=== PATIENT | female | born 1950 | race Two or more races ===

== ENCOUNTER 2024-09-02 10:08 | Outpatient (AMB) | payer MEDICARE, MEDICAID, SELFPAY ==
[2024-09-02 11:00] VITALS: BP 153/74; PULSE 72; RESP 18; TEMP 36.5; O2SAT 94; BMI 35.9
--- NOTE | 2024-09-02 11:00 | PD.ORTHCLVIS ---
Vital signs 09/02/24 11:00 Height 1.45 m Height Method Stated Weight 75.41 kg Weight Measurement Method Standing Scale BMI 35.9 BP 153/74 H Blood Pressure Source Automatic Cuff Blood Pressure Location Right Upper Arm Position Sitting Respiration 18 Pulse 72 Pulse Source Monitor Temp 97.7 F Temp Source Temporal Artery Scan Pulse Oximetry (%) 94 L Oxygen Delivery Method Room Air Med/Allergies Allergies & Medications Allergies topiramate [From Topamax] Allergy (Verified 09/02/24 11:04) Medication Reconciliation amlodipine 10 mg tablet 10 mg PO QDAY 09/02/24 [History Confirmed 09/02/24] amoxicillin 875 mg tablet 875 mg PO BID 09/02/24 [History Confirmed 09/02/24] fluticasone fur. 100 mcg-umeclid 62.5 mcg-vilant 25 mcg inhalat.powder (Trelegy Ellipta) 1 inh inhalation Q24H 09/02/24 [History Confirmed 09/02/24] gabapentin 100 mg capsule 100 mg PO QDAY 09/02/24 [History Confirmed 09/02/24] loratadine 10 mg tablet 10 mg PO QDAY 09/02/24 [History Confirmed 09/02/24] nabumetone 500 mg tablet 500 mg PO BID 09/02/24 [History Confirmed 09/02/24] propranolol 10 mg tablet 10 mg PO BID 09/02/24 [History Confirmed 09/02/24] tramadol 50 mg tablet 50 mg PO QDAY 09/02/24 [History Confirmed 09/02/24] Subjective Visit Visit for: new patient and knee Immunization / Flu Flu Vaccine in the Last 12 Months: No Flu Vaccine Exclusion Criteria: No Exclusion Criteria History of Present Illness Chief complaint: BILATERAL KNEE PAIN, BOTH KNEES REPLACED. [facility] Date of injury / onset of symptoms: 1 year ago Patient is a pleasant 73-year-old female with a left total knee replacement done in [place] 15 years ago. She has had increasing knee pain within the last 3 to 4 years. She also has significant right knee pain and right knee arthritis. Personal History Occupation: retired Hobbies: walking Pain Pain level (0-10): 7 Pain duration: comes and goes Pain location: anterior Pain quality: sharp, dull, aching, burning, shocking, electric and tingling Pain timing: increases with activity and stairs Associated signs & symptoms: numbness, weakness and stiffness Ambulatory data Ambulatory device: none Treatments Improvement with previous injections: No Number of Physical Therapy sessions: 6 Improvement with PT: No Improvement with NSAIDS: n/a Review of Systems Review of Systems: All systems negative unless otherwise noted in HPI. Exam Exam Patient is in no acute distress and is cooperative with the examination today. Patient has a normal mood and affect. Breathing is nonlabored. In no respiratory distress. Bilateral extremities were evaluated and demonstrates sensation intact to light touch. Palpable pedal pulses are present. No significant edema is present. Left knee incision is clean dry intact. There is greater than 5 mm of laxity in both AP and lateral plane. On the right knee there is significant tenderness palpation medially. She has varus deformity X-rays demonstrate significant right knee arthritis. These are nonweightbearing films. The left knee demonstrates a cemented triathlon good alignment position. Patella is resurfaced. There is some calcification in the suprapatella area. She can perform a straight leg raise Assessment and Plan Problem List (1) Painful total knee replacement, left: Status: Acute Plan: Patient is a pleasant 73-year-old Female with significant left knee pain and right knee arthritis. We discussed that I would like to get weightbearing x-rays and to look at her patella. She has pain anteriorly and diffusely. She is a lot of pain with stairs. For the right knee we recommend nonoperative options for now. I would like to do a cortisone injection and she has not had 1 recently. We will see her back after her new x-rays are done with more views. (2) Arthritis of left knee: Status: Acute (3) Arthritis of right knee: Status: Acute Advanced Care Planning Discussion Advance care planning discussed with:: patient and child Office Procedures GNS Level of Care Nursing/Assessment Patient Status: Initial/New Patient Nursing Assessment/Reassesment: Medication Reconciliation, Update PMH in EMR and Vital Signs Coordination of Care: Complex Care and Chronic Disease 1-5, Education Complex Pt/Fam, Consent,records obtained, informed consent, Results/Orders obtained and Staff clarify orders New Patient Charge New Patient Point Assignment: [id number] New Patient Point Charge: WATCHGUARD Level 3 ([id number]) Surgical Proc/IM SQ injection Major Surgical Procedure: Yes (KNEE INJECTION) Medication Given Medication Given Medication Given: Yes Documented Dose Given: 4 Route: Infiitration Medication Given Medication Given Medication Given: Yes Documented Dose Given: 1 Route: Infiitration Office Meds Xylocaine 10 mg/mL (1 %) injection solution Performing Provider: Royce Whitehead MD Performing Location: [facility] Administered by: Royce Whitehead MD on 09/02/24 11:32 Dose Route Admin Location Dispensed Lot Number Expiration Date [facility] Commissary Officer 20 mL Infiltration 20 mL [id number] 05/22/27 90782-875-80 [facility] triamcinolone acetonide 40 mg/mL suspension for injection Performing Provider: Royce Whitehead MD Performing Location: [facility] Administered by: Royce Whitehead MD on 09/02/24 11:32 Dose Route Admin Location Dispensed Lot Number Expiration Date [facility] Commissary Officer 40 mg Infiltration 1 mL [id number] 05/22/26 [id number] [employer] Past Medical History Past Medical History Have you ever been diagnosed with any of the following: Cardiology Problems Hypertension: Yes Respiratory Problems Smoking: No Smoking Cessation Counseling: No Smoking Exposure: No Tobacco Use: No Surgical History Total Knee Replacement: Yes
== END 2024-09-02 11:42 | disposition home or self-care (01) ==
PROVIDERS: Supervising Provider Orthopaedic Surgery Adult Reconstructive Orthopaedic Surgery; Visit Provider Orthopaedic Surgery Adult Reconstructive Orthopaedic Surgery
DX: M17.0 Bilateral primary osteoarthritis of knee (principal); T84.84XD Pain due to internal orthopedic prosthetic devices, implants and grafts, subsequent encounter; Y84.9 Medical procedure, unspecified as the cause of abnormal reaction of the patient, or of later complication, without mention of misadventure at the time of the procedure; Z96.652 Presence of left artificial knee joint; I10 Essential (primary) hypertension
CPT/HCPCS: 20610; 99203; J3301; J3490; G0463